=== PATIENT | female | born 1955 | race Caucasian/White ===

== ENCOUNTER → 2021-04-13 15:49 | Outpatient (CLI) | payer BC, SELFPAY ==
--- NOTE | 2021-04-13 15:58 | MRI_ITS ---
STUDY: MRI RIGHT ANKLE WITHOUT CONTRAST REASON FOR EXAM: Female, 65 years old. RT ANKLE OSTEOARTHRITIS, PTT DYSFUNCTION TECHNIQUE: Standardized fat and water weighted pulse sequences were obtained in all 3 orthogonal planes. COMPARISON: None. FINDINGS: Normal extensor tendons. Mild peroneus longus and brevis tenosynovitis. Mild posterior tibialis tendinosis with mild tenosynovitis. Remainder of the flexor tendons unremarkable. Hindfoot valgus. Mild pes planus. Mild tibiotalar arthrosis. Moderate talonavicular arthrosis predominating laterally. Minimal calcaneal cuboid arthrosis. Mild navicular cuneiform joint arthrosis. Minimal tarsometatarsal joint arthrosis. No acute fracture, dislocation or cortical destruction. Anterior talus bone marrow edema/contusion (sagittal image 10 series 4). Normal Achilles tendon. Moderate plantar fascial thickening. Small plantar spur. Mild muscle atrophy of the midfoot/hindfoot. Normal syndesmotic ligaments. Mild chronic anterior and posterior talofibular ligament thickening. Mild chronic deltoid ligament thickening. Mild chronic spring ligament thickening. Normal sinus Tarsi/subtalar ligaments. Normal partially visualized Lisfranc ligament. Small volume tibiotalar/subtalar joint effusion. Mild soft tissue swelling at the ankle predominating anteriorly/medially. No solid, cystic or lipomatous lesions. MRI/Lower Ext Joint Only (Routine) IMPRESSION: Mild PTT tendinosis with mild tenosynovitis Mild peroneus longus and brevis tenosynovitis Planovalgus with mild/moderate osteoarthritis predominating at the talonavicular articulation Small plantar spur with moderate plantar fascial thickening and mild muscle atrophy Multiregional chronic ankle sprains without acute process or tear Small volume joint effusion with mild soft tissue swelling Electronically Signed: Emil Ford DO at 10:09 EST Tel , Service support ,
== END ==
PROVIDERS: Referring Provider Orthopaedic Surgery; Visit Provider Orthopaedic Surgery
DX: M76.821 Posterior tibial tendinitis, right leg (principal); M19.071 Primary osteoarthritis, right ankle and foot
CPT/HCPCS: 73721